=== PATIENT | male | born 1960 | race Caucasian/White ===

== ENCOUNTER → 2023-03-18 10:03 | Outpatient (BNVA) | payer BC, SELFPAY | PROVIDERS: Visit Provider Family Medicine | DX: G43.909 Migraine, unspecified, not intractable, without status migrainosus (principal); M25.511 Pain in right shoulder; G47.00 Insomnia, unspecified; M54.50 Low back pain, unspecified; R22.1 Localized swelling, mass and lump, neck | CPT/HCPCS: 80053; 80061; 84439; 84443; 85025 ==